=== PATIENT | female | born 1970 | race Caucasian/White ===

== ENCOUNTER 2019-02-07 15:51 | Emergency (ER) | payer SELFPAY ==
[2019-02-07] MEDS ORDERED: Ketorolac Tromethamine 30 MG/ML VIAL ONE (16:19)
[2019-02-07] MEDS ORDERED: Sodium Chloride 0.9% 1,000 ML ONE (16:19)
[2019-02-07 16:39] LABS: #Basophils 0.1 thou/uL (0.0-0.2); #Eosinphils 0.1 thou/uL (0.0-0.7); #Lymphocytes 2.1 thou/uL (1.20-3.40); #Monocytes 0.5 thou/uL (0.11-0.59); #Neutrophils 9.4 thou/uL (1.40-6.50); %Basophils 0.6 % (0.0-1.0); %Eosinophils 0.6 % (0.0-10.0); %Lymphocytes 17.2 % (21.0-51.0); %Monocytes 4.3 % (0.0-10.0); %Neutrophils 77.2 % (42.0-75.0); Hemoglobin 13.8 g/dL (12.0-16.0); Mean Corpuscular HGB CONC 33.1 g/dL (32.0-36.0); Mean Corpuscular Hemoglobin 28.4 pg (27.0-31.0); Mean Corpuscular Volume 85.7 fL (78.0-98.0); Mean Platelet Volume 5.5 fL (7.4-10.4); Platelet Count 358 thou/uL (130-400); RBC Distribution Width 13.1 % (11.5-14.5); Red Blood Cell (RBC) Count 4.88 mill/uL (4.20-5.40); White Blood Cell (WBC) Count 12.2 thou/uL (4.8-10.8)
--- NOTE | 2019-02-07 16:47 | CT ---
CT ABDOMEN NONCONTRAST CT PELVIS NONCONTRAST: (Urolithiasis protocol) DATE: 02/07/2019 HISTORY: 48-year-old female with right flank pain. COMPARISON: none TECHNIQUE: IV injection of iodinated contrast media: None Oral contrast media: None FINDINGS: Other than for urolithiasis, the lack of IV and oral contrast limits the evaluation. There is a tubular cystic mass in the right pelvic cavity measuring approximately 6 x 5 x 2.5 x 2.5 c m, without surrounding edema. At the inferior medial posterior edge of this cystic mass, where it abuts the lateral edge of the uterine body and fundus, there is a metallic clip. There is a second ri ght-sided metallic clip, which is a tubal ligation clip, abutting a soft tissue density structure which may represent ovarian tissue that abuts the posterior superior aspect of this cystic mass. At t he contralateral left adnexa, there is another tubal ligation clip. Multiple surgical clips posterior to the cecum. Absent appendix. No colonic diverticulitis, small bowel dilation, ascites, or pneumoperitoneum. Lung bases are clear. No renal, ureteral, or bladder calculus. No hydronephrosis. Within the limitations of a noncontrast scan, no major pathology identified involving kidneys, abdomi nal aorta, adrenals, liver, pancreas, and spleen. Cholecystectomy clips in gallbladder fossa. IMPRESSION: 1) a tubular cystic mass in the right pelvic cavity, suspicious for hydrosalpinx. 2) status post bilateral tubal ligation. 3) status post cholecystectomy. 4) status post appendectomy. 5) no urolithiasis or obstructive uropathy.
[2019-02-07 17:03] LABS: BHCG - Serum Negative (NEGATIVE); Pregs Control Background? CLEAR/WHITE (CLR/WHITE); Pregs Control Bar Appear? YES (CONTROL BAR)
[2019-02-07 17:06] LABS: ALT (SGPT) 13 U/L (8-55); AST (SGOT) 12 U/L (5-34); Albumin 3.7 g/dL (3.5-5.0); Alkaline Phosphatase 65 U/L (40-110); Anion Gap 13 mmol/L (10-20); BUN (Urea Nitrogen) 11 mg/dL (7.0-18.7); Bilirubin, Total 0.3 mg/dL (0.2-1.2); Calc. Creatinine Clearance 0 mL/min (70-130); Calcium 9.1 mg/dL (7.8-10.44); Carbon Dioxide 25 mmol/L (22-29); Chloride 102 mmol/L (98-107); Estimated GFR-MDRD 83; Glucose 245 mg/dL (70-105); Lipase 15 U/L (8-78); Potassium 4.1 mmol/L (3.5-5.1); Protein, Total 6.7 g/dL (6.0-8.3); Sodium 136 mmol/L (136-145)
[2019-02-07] MEDS ORDERED: Fentanyl 100 MCG/2 ML VIAL ONE (17:25)
[2019-02-07 17:31] LABS: Bilirubin Negative (Negative); Blood, Urine Negative (Negative); Glucose, Urine (Dipstick) 250 mg/dL (Negative); Leukocyte Negative (Negative); Nitrite Positive (Negative); Protein, Urine (Dipstick) Negative (Neg-Trace); Urobilinogen 0.2 mg/dL (Less than 2)
[2019-02-07 17:37] LABS: Clarity Hazy (Clear)
[2019-02-07 17:39] LABS: Bacteria/HPF 2+ HPF (None Seen); RBC/HPF 0-3 HPF (0-3); WBC/HPF 0-3 HPF (0-3)
[2019-02-07] MEDS ORDERED: cefTRIAXone\\ROCEPHIN 1 GM VIAL ONE (17:51)
[2019-02-09 21:29] LABS: Chlamydia by PCR Not Detected (NotDetected); GC by PCR Not Detected (NotDetected)
== END 2019-02-07 18:06 | disposition home or self-care (01) ==
LOC: MADERS 15:51
DX: N39.0 Urinary tract infection, site not specified (principal); E11.9 Type 2 diabetes mellitus without complications; F17.210 Nicotine dependence, cigarettes, uncomplicated; Z79.899 Other long term (current) drug therapy
CPT/HCPCS: 74176; 80053; 81003; 81015; 83690; 84703; 85025; 87086; 87480; 87491; 87510; 87591; 87660; 96361; 96374; 96375; J0696; J1885; J3010; J7050